=== PATIENT | female | born 1970 | race Two or more races ===

== ENCOUNTER 2020-06-13 13:34 | Outpatient (CLI) | payer OTHER | END 2020-06-13 13:44 | disposition home or self-care (01) | LOC: EDSEX 13:34 → MRI 13:34 | DX: M51.26 Other intervertebral disc displacement, lumbar region (principal) | CPT/HCPCS: 72148 ==

== ENCOUNTER 2020-06-28 13:23 | Outpatient (CLI) | payer OTHER | END 2020-06-28 13:40 | disposition home or self-care (01) | LOC: TOM 13:23 → EDSEX 13:23 → TOM 13:40 | PROVIDERS: ATTEND Internal Medicine Cardiovascular Disease | DX: K40.90 Unilateral inguinal hernia, without obstruction or gangrene, not specified as recurrent (principal) ==

== ENCOUNTER 2020-06-29 07:21 | Outpatient (CLI) | payer OTHER | END 2020-06-29 08:30 | disposition home or self-care (01) | LOC: LAB 07:21 | PROVIDERS: ATTEND Internal Medicine Cardiovascular Disease | DX: E03.8 Other specified hypothyroidism (principal); E11.9 Type 2 diabetes mellitus without complications; I10 Essential (primary) hypertension; N39.0 Urinary tract infection, site not specified; N41.0 Acute prostatitis; Z13.0 Encounter for screening for diseases of the blood and blood-forming organs and certain disorders involving the immune mechanism; Z12.11 Encounter for screening for malignant neoplasm of colon ==

== ENCOUNTER 2020-07-25 14:57 | Outpatient (CLI) | payer OTHER | END 2020-07-25 15:06 | disposition home or self-care (01) | LOC: LAB 14:57 | PROVIDERS: ATTEND Internal Medicine Cardiovascular Disease | DX: E03.8 Other specified hypothyroidism (principal); I10 Essential (primary) hypertension ==

== ENCOUNTER 2020-10-04 06:17 | Day surgery (SDC) | payer OTHER ==
[2020-10-04] MEDS ORDERED: COLACE100 MG PO (11:21)
[2020-10-04] MEDS ORDERED: NEURONTIN600 M1 PO (11:21)
[2020-10-04] MEDS ORDERED: PERCOCET 5-3251 EACH PO (11:21)
== END 2020-10-04 14:39 | disposition home or self-care (01) ==
LOC: CIR.AMB 06:17
PROVIDERS: ATTEND Surgery
DX: K40.90 Unilateral inguinal hernia, without obstruction or gangrene, not specified as recurrent (principal); Z20.828 Contact with and (suspected) exposure to other viral communicable diseases

== ENCOUNTER 2023-08-15 12:31 | Emergency (ER) | payer OTHER ==
[~2023-08-15] VITALS: Ht 167.6 cm; Wt 73.0 kg
[~2023-08-15 12:31] MED LIST: COLACE100 MG PO; NEURONTIN600 M1 PO; PERCOCET 5-3251 EACH PO
[2023-08-15 14:33] LABS: INR 1.03; PROTHROMBIN TIME 10.8 SECONDS (9.0-11.5)
[2023-08-15 14:35] LABS: HEMATOCRIT 48.8 % (39.0-48.0); HEMOGLOBIN 16.4 g/dL (13-16.00); MEAN CELL VOLUME 91.6 fL (80.0-100.00); MEAN CORPUSCULAR HEMOGLOBIN 30.8 pg (27.00-32.0); MEAN CORPUSCULAR HGB CONC 33.7 g/dl (32.0-36.0); PLATELET COUNT 209 K/uL (150-450); RED BLOOD COUNT 5.33 M/uL (4.00-6.00); RED CELL DISTRIBUTION WIDTH 13.1 % (11.5-14.5)
[2023-08-15 14:41] LABS: ALBUMIN 4.1 gm/dL (3.4-5.0); CALCIUM 9.5 mg/dL (8.5-10.1); CREATININE SERUM 0.98 mg/dL (0.70-1.30); GFR 80.01; POTASSIUM 4.24 mEq/L (3.5-5.1); TOTAL PROTEIN 8.1 gm/dL (6.4-8.2)
== END 2023-08-15 17:53 | disposition home or self-care (01) ==
LOC: ER 12:31
PROVIDERS: Emergency Medicine
DX: R53.81 Other malaise (principal); I10 Essential (primary) hypertension